=== PATIENT | male | born 2005 | race Caucasian/White ===

== ENCOUNTER 2023-09-26 10:44 | Emergency (ER) | payer SELFPAY ==
[2023-09-26 10:48] VITALS: BP 135/81; PULSE 87; RESP 18; TEMP 36.9; O2SAT 99; BMI 37.4
[2023-09-26 11:20] LABS: Internal Control Within Normal Limits; SARS-CoV-2 Ag NEGATIVE (NEGATIVE); Strep A Antigen Screen Negative
--- NOTE | 2023-09-26 11:34 | ED_ITS ---
HPI - General Adult General Chief complaint: Upper Respiratory Infection Stated complaint: EAR PAIN Time Seen by Provider: 09/26/23 10:58 Source: patient Mode of arrival: walk-in Limitations: no limitations History of Present Illness HPI narrative: Patient is a 18-year-old male who is presenting to the Emergency Room with chief complaint of flulike symptoms of bilateral ear pain, myalgia, arthralgia, runny nose and sore throat. Patient was sent here from work to be tested for Covid. Patient Is using acetaminophen, he took 2 tablets in the morning yesterday, and 2 last evening. Patient presented to the Emergency Room for evaluation. Patient had mild nausea, no vomiting. No rash. No headache, neck pain. Mild bilateral ear pain. Patient was sent here from work and needs a note if he can return on Friday. No other acute complaints. . All systems are negative except as noted/marked. All systems reviewed and otherwise negative. . Nurses note and vital signs reviewed and patient is not hypoxic. General: The patient appears well and in no apparent distress. Patient is resting comfortably on cart. Patient is not toxic, lethargic, or listless Skin: Warm, dry, no pallor noted. There is no rash noted. No petechiae, purpura. Head: Normocephalic, atraumatic, No tenderness to palpation to bilateral frontal x-ray sinuses. Eye: Normal conjunctiva, no drainage, EOMI. PERRL Ears, Nose, Mouth, and Throat: oral mucosa is moist. Nares patent. Mouth without vesicles. Bilateral tympanic membrane shows no erythema, perforation or bulging. Cardiovascular: Regular Rate and Rhythm, no murmur, gallop, rub Respiratory: Patient is in no distress, no accessory muscle use, lungs are clear to auscultation, no wheezing, rales or rhonchi Back: non-tender, no CVA tenderness bilaterally to percussion. No CT LS midline pain GI: soft, no tenderness Musculoskeletal: Patient has full range of motion of all of the extremities, no motor, sensory, or focal neurological deficits Neurological: A&O x3, normal speech Psychiatric: Cooperative Related Data Previous Rx's Medication Instructions Recorded ondansetron 4 mg disintegrating 4 mg PO Q4H PRN nausea and 09/26/23 tablet vomiting 3 days #6 tabs Allergies Allergy/AdvReac Type Severity Reaction Status Date / Time No Known Drug Allergies Allergy Verified 09/26/23 10:47 PFSH PFSH Social History Smoking status: Former smoker Exam Constitutional Vital Signs, click to edit/add: Last Vital Signs Temp 98.5 F 09/26/23 10:48 Pulse 87 09/26/23 10:48 Resp 18 09/26/23 10:48 BP 135/81 09/26/23 10:48 Pulse Ox 99 09/26/23 10:48 O2 Del Method Room Air 09/26/23 10:48 Course Vital Signs Vital signs: Vital Signs Temperature 98.5 F 09/26/23 10:48 Pulse Rate 87 09/26/23 10:48 Respiratory Rate 18 09/26/23 10:48 Blood Pressure 135/81 09/26/23 10:48 Pulse Oximetry 99 09/26/23 10:48 Oxygen Delivery Method Room Air 09/26/23 10:48 Temperature 98.5 F 09/26/23 10:48 Pulse Rate 87 09/26/23 10:48 Respiratory Rate 18 09/26/23 10:48 Blood Pressure 135/81 09/26/23 10:48 Pulse Oximetry 99 09/26/23 10:48 Oxygen Delivery Method Room Air 09/26/23 10:48 Medical Decision Making MDM Narrative Medical decision making narrative: COVID Test is negative. Patient was given a work note. Patient was educated on using DayQuil, NyQuil, Flonase. Alternate Tylenol Motrin. Increase fluids. Patient will follow-up with PCP. No questions at discharge. Lab Data Lab results reviewed: Yes I reviewed the patient's lab results Labs: Lab Results 09/26/23 Range/Units 10:55 SARS-CoV-2 (PCR) Negative (NEGATIVE) Streptococcus Screen Negative Discharge Plan Discharge Chief Complaint: Upper Respiratory Infection Clinical Impression: Upper respiratory infection, Sinus congestion Patient Disposition: Home, Self-Care Time of Disposition Decision: 11:32 Condition: Fair Prescriptions / Home Meds: New ondansetron 4 mg tablet,disintegrating 4 mg PO Q4H PRN (Reason: nausea and vomiting) 3 Days Qty: 6 0RF Instructions: Upper Respiratory Infection (ED), Earache (ED) Additional Instructions: Use DayQuil, NyQuil, Flonase. Continue to alternate Tylenol and anti-inflammatories every 4 hours. Increase fluids. Work note given. you may return to work on Friday, September 29 If you are fever free for 24 parminder rs. Stand Alone Forms: Work/School Release, Portal Instructions Referrals: Physician,Non-Staff, MD [Primary Care Provider] - 1 week
[2023-09-26 15:10] LABS: SARS-CoV-2 NAA NOT DETECTED (NOT DETECTE)
== END 2023-09-26 11:39 | disposition home or self-care (01) ==
PROVIDERS: Emergency Provider Emergency Medicine
DX: J06.9 Acute upper respiratory infection, unspecified (principal); R09.81 Nasal congestion; Z87.891 Personal history of nicotine dependence; Z20.822 Contact with and (suspected) exposure to COVID-19
CPT/HCPCS: 87070; 87635; 87811; 87880; 99283

== ENCOUNTER 2024-12-14 12:19 | Emergency (ER) | payer SELFPAY ==
[2024-12-14 12:24] VITALS: BP 135/87; PULSE 108; TEMP 37.7; O2SAT 97; BMI 37.0
--- OUTSIDE RECORDS SUMMARY | 2024-12-14 12:28 | XMS_ITS | CCD ---
Author Organization [facility] Care Team Providers Care Sheep Killer Name Role Phone DALILA DIAS Admitting Unavailable DALILA DIAS Attending Unavailable DALILA DIAS Consulting Unavailable MORGAN RENEE Primary Care Unavailable RIZWANA ZUNIGA Consulting Unavailable LOY GARCIA Consulting Unavailable ALLISON HANKS Admitting Unavailable MORGAN RENEE Primary Care Unavailable RE CONTRERAS Consulting Unavailable ALLISON HANKS Attending Unavailable JERSON JORGE Consulting Unavailable ALLISON HANKS Consulting Unavailable ODILIA MCCARTHY Admitting Unavailable MORGAN RENEE Primary Care Unavailable RE CONTRERAS Consulting Unavailable ODILIA MCCARTHY Attending Unavailable ODILIA MCCARTHY Consulting Unavailable Problems Active Problems Problem Classification Problem Date Documented Da te Episodic/Chronic Chronic ulcer of skin (1 source) Pressure ulcer of other site, unspecified stage; Translations: [PRESSURE ULCER OTHER SITE UNS STAGE] Onset: 11-14-2020 Chronic Other connective tissue disease (3 sources) Pain in right foot; Translations: [PAIN IN RIGHT FOOT] Onset: 11-11-2020 Episodic Skin and subcutaneous tissue infections (1 source) Cellulitis of right lower limb; Translations: [CELLULITIS OF RIGHT LOWER LIMB] Onset: 11-14-2020 Episodic Substance-related disorders (1 source) Cannabis use, unspecified, uncomplicated; Translations: [CANNABIS USE UNS UNCOMPLICATED] Onset: 12-16-2019 Chronic Past or Other Problems Problem Classification Problem Date Documented Da te Episodic/Chronic Fever of unknown origin (1 source) Fever, unspecified; Translations: [FEVER UNSPECIFIED] Onset: 11-30-2019 Episodic Other lower respiratory disease (4 sources) Cough; Translations: [COUGH] Onset: 12-14-2019 Episodic Other lower respiratory disease (1 source) Other nonspecific abnormal finding of lung field; Translations: [OTH NONSPECIFIC ABN FIND LNG FIELD] Onset: 12-16-2019 Episodic Pneumonia (except that caused by tuberculosis or sexually transmitted disease) (1 source) Pneumonia, unspecified organism; Translations: [PNEUMONIA UNSPECIFIED ORGANISM] Onset: 11-30-2019 Episodic Results Test Name Value Interpretation Reference Range Facil ity XR FOOT RT MIN 3 VIEWSon XR FOOT RT MIN 3 VIEWS PROCEDURE: XR FOOT RT MIN 3 VIEWS HISTORY: Swelling COMPARISON: None. FINDINGS: BONES:No fracture, acute abnormality, or significant arthropathy. SOFT TISSUES:Mild dorsal soft tissue swelling. No radiopaque foreign body. EFFUSION:None visible. OTHER: Negative. IMPRESSION: 1. Mild dorsal soft tissue swelling. 2. Normal appearance of the bones. Electronically authenticated by: RE CONTRERAS Date: 2020-11-11 10:[address] [facility] INFLUENZA A AND B AGon 12-13 INFLUANEGH SEE BELOW Normal [facility] Comment on above: Result Comment: Nega tive for Flu A protein angiten. Infection due to Flu A cannot be ruled out. Flu A angiten in the sample may be below the detection limit of the test. Performed By: #### I NFLUAB #### [facility] [address] [place] [address] Román Natalie INFLUBNEGH SEE BELOW Normal [facility] Comment on above: Result Comment: Nega tive for Flu B protein antigen. Infection due to Flu B cannot be ruled out. Flu B antigen in the sample may be below the detection limit of the test. Performed By: #### I NFLUAB #### [facility] [address] [place] [address] Román Natalie INFLUENZA A AG Negative Normal NEGATIVE SEE COMMENT [facility] Comment on above: Performed By: #### I NFLUAB #### [facility] [address] [place] [address] Román Natalie INFLUENZA B AG Negative Normal NEGATIVE SEE COMMENT [facility] Comment on above: Performed By: #### I NFLUAB #### [facility] [address] [place] [address] Román Natalie INTERNAL CONTROLS Within Normal Limits Normal Wi thin Normal Limits [facility] Comment on above: Performed By: #### I NFLUAB #### [facility] [address] [place] [address] Román Estrada XR CHEST 2 Von 12-14-2019 XR CHEST 2 V EXAMINATION: XR CHES T 2 V HISTORY: COUGH ; congestion COMPARISON: No relevant comparison available. FINDINGS: LUNGS: Underexpanded lungs with trace amount stranding within the lung bases. VASCULATURE: No increased pulmonary vasculature. PLEURA: No pneumothorax, effusion, or pleural thickening. CARDIAC: No cardiomegaly or cardiac silhouette abnormality. MEDIASTINUM: No visible mass or adenopathy. BONES: No fracture or visible bone lesion. OTHER: Negative. IMPRESSION: Low lung volume examination. Trace amount of bibasilar atelectasis versus infiltrates. Normal [facility] Encounters Encounter Date Encounter Type Care Provider Facility Start: 11-11-2020 End: 11-11-2020 Patient encounter procedure ODILIA MCCARTHY Facility:[facility] Start: 12-14-2019 End: 12-14-2019 Patient encounter procedure ALLISON HANKS Facility:[facility] Start: 11-26-2019 End: 11-26-2019 Patient encounter procedure DALILA Bacilio DIAS Facility:[facility] Payers Date Payer Category Payer Unknown [id number] [id number] [id number] 1978 Unknown [id number] [id number] [id number] 1978 Unknown [id number] [id number] [id number] 1959 Unknown [id number] Summary Purpose Family History No Family History Records Found Advance Directives No Advanced Directives Records Found Additional Source Comments (unrecognized sect ion and content) No Status Records Found INFORMATION SOURCE (unrecogn ized section and content) DATE CREATED AUTHOR 11/14/2020 The [facility] FOR RECORDS PERTAINING TO PATIENTS WHO ARE OR HAVE BEEN ENROLLED IN A CHEMICAL DEPENDENCY/SUBSTANCEABUSE PROGRAM, SOME INFORMATION MAY BE OMITTED. This clinical summary was aggregated from multiple sources. Caution should be exercised in using it in the provision of clinical care. This summary normalizes information from multiple sources, and as a consequence, information in this document may materially change the coding, format and clinical context of patient data. In addition, data may be omitted in some cases. CLINICAL DECISIONS SHOULD BE BASED ON THE PRIMARY CLINICAL RECORDS. [employer] [facility]. provides no warranty or guarantee of the accuracy or completeness of information in this document.
[2024-12-14 12:42] LABS: Internal Control Within Normal Limits; Strep A Antigen Screen Negative
--- NOTE | 2024-12-14 14:32 | ED_ITS ---
HPI HPI - General Adult General Chief complaint: Upper Respiratory Infection Stated complaint: VOMITING, SORE THROAT Time Seen by Provider: 12/14/24 14:12 History of Present Illness HPI narrative: Patient is a 19-year-old male who is having flulike symptoms for 2 days. Patient did not go to work today. Patient has sinus pressure, cough, congestion, myalgia, arthralgia, vomiting with no nausea patient states, mild diarrhea. Patient did not get a flu shot this year. No sick contacts that patient is aware of. Patient has taken no [id number] medication to help with his symptoms at all. No headache or neck pain of significance. All systems are negative except as noted/marked. All systems reviewed and otherwise negative. Nurses note and vital signs reviewed and patient is not hypoxic. Patient smells of body odor and poor hygiene General: The patient appears well and in no apparent distress. Patient is resting comfortably on cart. Patient is not toxic, lethargic, or listless Skin: Warm, dry, no pallor noted. There is no rash noted. No petechiae, purpura. Head: Normocephalic, atraumatic, mild sinus tenderness to palpation. Eye: Normal conjunctiva, no drainage, EOMI. PERRL Ears, Nose, Mouth, and Throat: oral mucosa is moist. Nares patent. Mouth without vesicles. Cardiovascular: Regular Rate and Rhythm, no murmur, gallop, rub Respiratory: Patient is in no distress, no accessory muscle use, lungs are clear to auscultation, no wheezing, rales or rhonchi Back: non-tender, GI: no tenderness to palpation, Musculoskeletal: Patient has full range of motion of all of the extremities, no motor, sensory, or focal neurological deficits Neurological: A&O x4, normal speech Psychiatric: Cooperative Related Data Previous Rx's ?Medication ?Instructions ?Recorded ondansetron 4 mg disintegrating 4 mg PO Q4H PRN nausea and 12/14/24 tablet vomiting 3 days #6 tabs oseltamivir 75 mg capsule (Tamiflu) 75 mg PO BID 5 days #10 caps 12/14/24 Allergies Allergy/AdvReac Type Severity Reaction Status Date / Time No Known Drug Allergies Allergy Verified 12/14/24 12:23 Opioid HPI Opioid Management Most Recent Opioid Data: Last Pain Scale 7 12/14/24 13:15 12/14/24 PFSH PFSH Social History Smoking status: Former smoker Little interest or pleasure in doing things: not at all Feeling down, depressed, or hopeless: not at all Exam Constitutional Vital Signs, click to edit/add: Last Vital Signs Temp 99.8 F 12/14/24 12:24 Pulse 108 H 12/14/24 12:24 Resp 20 12/14/24 12:24 BP 135/87 12/14/24 12:24 Pulse Ox 97 12/14/24 12:24 O2 Del Method Room Air 12/14/24 12:24 Course Vital Signs Vital signs: Vital Signs Temperature 99.8 F 12/14/24 12:24 Pulse Rate 108 H 12/14/24 12:24 Respiratory Rate 20 12/14/24 12:24 Blood Pressure 135/87 12/14/24 12:24 Pulse Oximetry 97 12/14/24 12:24 Oxygen Delivery Method Room Air 12/14/24 12:24 Temperature 99.8 F 12/14/24 12:24 Pulse Rate 108 H 12/14/24 12:24 Respiratory Rate 20 12/14/24 12:24 Blood Pressure 135/87 12/14/24 12:24 Pulse Oximetry 97 12/14/24 12:24 Oxygen Delivery Method Room Air 12/14/24 12:24 Medical Decision Making [facility] Narrative Medical decision making narrative: Chest x-ray was read by Dr. Baeza as no acute cardiopulmonary process Patient was educated on using [id number] products to help with symptoms. Patient was given a work note. Patient has signs of influenza. Patient was treated with Tamiflu and Zofran. Patient needs establish a PCP. No question at discharge Lab Data Labs: Lab Results 12/14/24 Range/Units 12:32 Streptococcus Screen Negative Discharge Plan Discharge Stand Alone Forms: Work/School Release Chief Complaint: Upper Respiratory Infection Clinical Impression: Influenza Patient Disposition: Home, Self-Care Time of Disposition Decision: 14:46 Condition: Fair Prescriptions / Home Meds: New oseltamivir [Tamiflu] 75 mg capsule 75 mg PO BID 5 Days Qty: 10 0RF ondansetron 4 mg tablet,disintegrating 4 mg PO Q4H PRN (Reason: nausea and vomiting) 3 Days Qty: 6 0RF Print Language: Welsh Instructions: Influenza (ED), Flu Shot (Vaccine) for Adults (ED) Additional Instructions: Increase fluids at home, Gatorade, Powerade, or water. Alternate using DayQuil, NyQuil, and Flonase. Add Mucinex as well as needed. Alternate Tylenol and Motrin every 4 hours to help with fever control, body aches or joint pain. Use [id number]-ced-wimcwrq vitamin C, vitamin D3, and zinc to help fight infection and help with her immune system. Referrals: Physician,Non-Staff, [Primary Care Provider] - 1 week Discharge Date/Time: 12/14/24 15:01
== END 2024-12-14 15:01 | disposition home or self-care (01) ==
PROVIDERS: Emergency Provider Emergency Medicine
DX: J11.1 Influenza due to unidentified influenza virus with other respiratory manifestations (principal); Z87.891 Personal history of nicotine dependence
CPT/HCPCS: 71045; 87070; 87880; 99284

== ENCOUNTER 2025-02-19 23:08 | Emergency (ER) | payer OTHER, SELFPAY ==
[2025-02-19 23:12] VITALS: BP 135/78; PULSE 84; TEMP 36.4; O2SAT 98; BMI 36.3
--- OUTSIDE RECORDS SUMMARY | 2025-02-19 23:14 | XMS_ITS | CCD ---
Author Organization [facility] Care Team Providers Care Senior Electronics Engineer Name Role Phone DALILA DIAS Admitting Unavailable [...] RE CONTRERAS Date: 2020-11-11 10:55 Normal [facility] INFLUENZA A AND B AGon 12-13 INFLUANEGH SEE BELOW Normal [facility] Comment on above: Result Comment: Nega tive for Flu A protein angiten. Infection due to Flu A cannot be ruled out. Flu A angiten in the sample may be below the detection limit of the test. Performed By: #### I NFLUAB #### [facility] [address] [place] [address] Román Natalie INFLUBNEGH SEE BELOW Normal [facility] Comment on above: Result Comment: Nega tive for Flu B protein antigen. Infection due to Flu B cannot be ruled out. Flu B antigen in the sample may be below the detection limit of the test. Performed By: #### I NFLUAB #### [facility] [address] [place] [address] Román Natalie INFLUENZA A AG Negative Normal NEGATIVE SEE COMMENT [facility] Comment on above: Performed By: #### I NFLUAB #### [facility] [address] [place] [address] Román Natalie INFLUENZA B AG Negative Normal NEGATIVE SEE COMMENT [facility] Comment on above: Performed By: #### I NFLUAB #### [facility] [address] [place] [address] Román Natalie INTERNAL CONTROLS Within Normal Limits Normal Wi thin Normal Limits [facility] Comment on above: Performed By: #### I NFLUAB #### [facility] [address] [place] [address] Román Estrada XR CHEST 2 Von 12-14-2019 [...] amount of bibasilar atelectasis versus infiltrates. Normal [facility] Encounters Encounter Date Encounter Type Care Provider Facility Start: 11-11-2020 End: 11-11-2020 Patient encounter procedure ODILIA MCCARTHY Facility:[facility] Start: 12-14-2019 End: 12-14-2019 Patient encounter procedure ALLISON HANKS Facility:[facility] Start: 11-26-2019 End: 11-26-2019 Patient encounter procedure DALILA Bacilio DIAS Facility:[facility] Payers Date Payer Category Payer Unknown [id number] [id number] [id number] 1978 Unknown [id number] 2.16.84 [id number] 1978 Unknown [id number] [id number] [id number] 1959 Unknown [id number] Summary Purpose Family History No Family History Records Found Advance Directives No Advanced Directives Records Found Additional Source Comments (unrecognized sect ion and content) No Status Records Found INFORMATION SOURCE (unrecogn ized section and content) DATE CREATED AUTHOR 11/14/2020 [facility] FOR RECORDS PERTAINING TO PATIENTS WHO ARE [...] BE BASED ON THE PRIMARY CLINICAL RECORDS. [facility] [employer] [facility]. provides no warranty or guarantee of the accuracy or completeness of information in this document.
--- NOTE | 2025-02-19 23:31 | ED.GENADUL1 ---
HPI HPI - General Adult General Chief complaint: Headache Stated complaint: headache Time Seen by Provider: 02/19/25 23:25 Source: patient Mode of arrival: walk-in Limitations: no limitations History of Present Illness HPI narrative: patient presents complaining of sinus and ear pressure earlier today. admits both have improved. Migraine headache has improved and pain is now 4/10. states he has dysuria and also diarrhea today. neg abdominal pain. states he called into work tonight and needs a work note Related Data Previous Rx's ?Medication ?Instructions ?Recorded ondansetron 4 mg disintegrating 4 mg PO Q4H PRN nausea and 12/14/24 tablet vomiting 3 days #6 tabs oseltamivir 75 mg capsule (Tamiflu) 75 mg PO BID 5 days #10 caps 12/14/24 Allergies Allergy/AdvReac Type Severity Reaction Status Date / Time No Known Drug Allergies Allergy Verified 02/19/25 23:17 Opioid HPI Opioid Management Most Recent Opioid Data: Last Pain Scale 4 02/19/25, 23:25 Last ED Pain Assessment 02/19/25, 23:25 Review of Systems ROS Status of ROS 10 or more systems reviewed and unremarkable except as noted in history and below PFSH PFS Social History Smoking status: Former smoker Little interest or pleasure in doing things: not at all Feeling down, depressed, or hopeless: not at all Exam Constitutional Vital Signs, click to edit/add: Last Vital Signs Temp 97.6 F 02/19/25 23:12 Pulse 84 02/19/25 23:12 Resp 16 02/19/25 23:12 BP 135/78 02/19/25 23:12 Pulse Ox 98 02/19/25 23:12 O2 Del Method Room Air 02/19/25 23:12 Common normals: no apparent distress, average body habitus, oriented x3, no limitations, healthy appearing, alert and well nourished [facility] Common normals: normocephalic and head/scalp atraumatic Eye Common normals: PERRL and EOMs intact bilaterally Respiratory Common normals: normal respiratory effort, no retractions, no use of accessory muscles and clear to auscultation bilaterally Cardio Common normals: regular rate, regular rhythm, S1 normal heart sound and S2 normal heart sound GI Common normals: Normal to inspection, nondistended, normoactive bowel sounds present, soft to palpation and non-tender Extremity Common normals: normal to inspection and full ROM Neuro Common normals: oriented x3, CN's II-XII intact bilaterally, moves all extremities and no focal motor deficits Psych Appearance: grossly normal Course Vital Signs Vital signs: Vital Signs Temperature 97.6 F 02/19/25 23:12 Pulse Rate 84 02/19/25 23:12 Respiratory Rate 16 02/19/25 23:12 Blood Pressure 135/78 02/19/25 23:12 Pulse Oximetry 98 02/19/25 23:12 Oxygen Delivery Method Room Air 02/19/25 23:12 Temperature 97.6 F 02/19/25 23:12 Pulse Rate 84 02/19/25 23:12 Respiratory Rate 16 02/19/25 23:12 Blood Pressure 135/78 02/19/25 23:12 Pulse Oximetry 98 02/19/25 23:12 Oxygen Delivery Method Room Air 02/19/25 23:12 Medical Decision Making MDM Narrative Medical decision making narrative: patient presents with a mild migraine. complaint of dysuria . UA is clear. States he has diarrhea. no sample while here. exam is normal. patient discharged in good condition. In need of a work note. Lab Data Labs: Lab Results 02/19/25 02/19/25 Range/Units 22:21 23:45 Urine Color Yellow (YELLOW) Urine Clarity Clear (CLEAR) Urine pH 8.0 (5.0-9.0) Ur Specific [place] 1.020 (1.005-1.025) Urine Protein Trace (NEG/TRACE) mg/dL Urine Glucose (UA) Negative (NEGATIVE) mg/dL Urine Ketones Negative (NEGATIVE) mg/dL Urine Occult Blood Negative (NEGATIVE) Urine Nitrite Negative (NEGATIVE) Urine Bilirubin Negative (NEGATIVE) Urine Urobilinogen 1.0 (0.2-1.0) EU/dL Ur Leukocyte Esterase Negative (NEGATIVE) Urine RBC None seen (0-2) #/HPF Urine WBC 0-2 A (NONE SEEN) #/HPF Ur Squamous Epith Cells None seen (NONE/RARE) #/LPF Urine Crystals Seen A (None Seen) #/HPF Amorphous Sediment Moderate Urine Bacteria None seen (NONE SEEN) #/HPF Urine Casts None seen (NONE SEEN) #/LPF Urine Mucus Large A (NONE SEEN) Ur Culture Indicated? No Influenza Type A Ag Negative Influenza Type B Ag Negative SARS-CoV-2 Ag (CV2AG) Negative (NEGATIVE) Discharge Plan Discharge Chief Complaint: Headache Clinical Impression: Diarrhea Patient Disposition: Home, Self-Care Prescriptions / Home Meds: No Action oseltamivir [Tamiflu] 75 mg capsule 75 mg PO BID 5 Days Qty: 10 0RF ondansetron 4 mg tablet,disintegrating 4 mg PO Q4H PRN (Reason: nausea and vomiting) 3 Days Qty: 6 0RF Print Language: Telugu Instructions: Acute Diarrhea (ED) Referrals: Physician,Non-Staff, MD [Primary Care Provider] - 1 week
[2025-02-19 23:49] LABS: Influenza Virus A Antigen Negative; Influenza Virus B Antigen Negative; Internal Control Within Normal Limits; SARS-CoV-2 Ag NEGATIVE (NEGATIVE)
[2025-02-19 23:50] LABS: Bilirubin Urine NEGATIVE (NEGATIVE); Blood Urine NEGATIVE (NEGATIVE); Clarity Urine CLEAR (CLEAR); Color Urine YELLOW (YELLOW); Glucose Urine UA NEGATIVE (NEGATIVE); Ketones Urine NEGATIVE (NEGATIVE); Leukocyte Esterase Urine NEGATIVE (NEGATIVE); Nitrite Urine NEGATIVE (NEGATIVE); Protein Urine TRACE mg/dL (NEG/TRACE)
[2025-02-20 00:01] LABS: Amorphous Sediment Urine MODERATE; Bacteria Urine NONE SEEN #/HPF (NONE SEEN); Cast Seen? NONE SEEN #/LPF (NONE SEEN); Crystals Seen? Seen #/HPF (None Seen); Mucus Urine LARGE (NONE SEEN); RBC Urine NONE SEEN #/HPF (0-2); Squamous Epithelial Cell Urine NONE SEEN #/LPF (NONE/RARE); Urine Culture Indicated NO; WBC Urine 0-2 #/HPF (NONE SEEN)
== END 2025-02-20 00:18 | disposition home or self-care (01) ==
PROVIDERS: Emergency Provider Internal Medicine
DX: R19.7 Diarrhea, unspecified (principal); Z87.891 Personal history of nicotine dependence; R51.9 Headache, unspecified; R30.0 Dysuria
CPT/HCPCS: 81001; 87804; 87811; 99285